=== PATIENT | male | born 1995 | race African-American/Black ===

== ENCOUNTER 2018-06-06 03:51 | Emergency (ER) | payer BC ==
--- NOTE | 2018-06-06 04:04 | ER Report ---
History and Physical Time Seen By MD: 04:04 HPI/ROS CHIEF COMPLAINT: abdominal pain HISTORY OF PRESENT ILLNESS: This is a 23 year old male. He is having lower abdominal pain. Across the lower abdomen, seems a little worse to the left side. Nothing makes it worse or better. Onset a few hours ago. Loose stools tonight. No fevers. No sic contacts. Does not think he had any bad food or water exposure, but did eat out last night. No chest pain. No shortness of breath or cough. Normal urination and no dysuria. Allergies: Coded Allergies: cefpodoxime (Verified Allergy, Intermediate, hives, 06/06/18) Home Meds Active Scripts Ondansetron (ONDANSETRON ODT) 4 Mg Tab.rapdis, 4 MG PO Q6H PRN for NAUSEA/VOMITING, #20 TAB 0 Refills Prov:DAPHNIE PATEL MD 06/06/18 Reviewed Nurses Notes: Yes Constitutional Vital Sign - Last 24 Hours 06/06/18 06/06/18 06/06/18 06/06/18 03:55 04:04 04:06 04:21 Temp 97.5 Pulse 67 72 64 Resp 14 B/P (MAP) 114/85 (95) Pulse Ox 95 96 O2 Delivery Room Air 06/06/18 06/06/18 06/06/18 06/06/18 04:36 04:51 05:17 05:21 Pulse 54 68 72 B/P (MAP) 117/68 (84) Pulse Ox 94 95 96 06/06/18 06/06/18 06/06/18 06/06/18 05:30 05:45 06:00 06:15 Pulse 70 70 76 64 Pulse Ox 95 95 95 06/06/18 06/06/18 06:30 06:45 Pulse 74 75 Pulse Ox 96 Intake and Output 06/05/18 06/05/18 06/06/18 15:00 23:00 07:00 Intake Total 1000 ml Balance 1000 ml Physical Exam General Appearance: The patient is alert. No acute distress. Eyes: Pupils are equal, round. No pallor, injection or icterus. ENT: Mucous membranes are moist. Neck: Supple and non tender. Respiratory: Lungs are clear to auscultation. Cardiovascular: Regular rate and rhythm. No murmurs, gallops or rubs. Normal capillary refill. No edema. Gastrointestinal: Abdomen is soft, discomfort with palpation across lower abdomen. Nondistended. No masses or organomegaly. Hyperactive bowel sounds. No costovertebral angle tenderness with percussion. Neurological: Alert and oriented x3. Skin: Warm and dry. Musculoskeletal: No pain in the back/spine with palpation. DIFFERENTIAL DIAGNOSIS: After history and physical exam, differential diagnosis was considered for abdominal pain including but not limited to gastroenteritis, colitis, food poisoning and urinary tract infection. Medical Decision Making Data Points Result Diagram: 06/06/1840906/06/18409 Laboratory Hematology Test 06/06/18 04:05 06/06/18 04:10 06/06/18 05:30 Urine Color Yellow Urine Clarity Slightly-cloudy Urine pH 5.0 pH (4.8-9.5) Urine Specific [place] 1.026 Urine Protein Negative mg/dL (NEGATIVE) Urine Glucose (UA) Negative mg/dL (NEGATIVE) Urine Ketones Trace mg/dL (NEGATIVE) Urine Blood Negative (NEGATIVE) Urine Nitrite Negative (NEGATIVE) Urine Bilirubin Negative (NEGATIVE) Urine Urobilinogen 2.0 mg/dL (0.2-1.9) Urine Leukocyte Esterase Negative (NEGATIVE) Urine RBC 3 /HPF (0-2/HPF) Urine WBC 3 /HPF (0-5/HPF) Urine Squamous Epithelial Cells Few /LPF (</=FEW) Urine Calcium Oxalate Crystals Moderate /HPF (NONE) Urine Bacteria Negative /HPF (NONE-FEW) Urine Mucus Few /HPF (NONE-FEW) Red Blood Count 5.94 M/uL (4.00-5.60) Mean Corpuscular Volume 83.3 fL (80.0-96.0) Mean Corpuscular Hemoglobin 28.1 pg (26.0-33.0) Mean Corpuscular Hemoglobin Concent 33.7 g/dL (32.0-36.0) Red Cell Distribution Width 14.3 % (11.5-14.5) Mean Platelet Volume 9.1 fL (7.2-11.1) Neutrophils (%) (Auto) % (39.4-72.5) Lymphocytes (%) (Auto) % (17.6-49.6) Monocytes (%) (Auto) % (4.1-12.4) Eosinophils (%) (Auto) % (0.4-6.7) Basophils (%) (Auto) % (0.3-1.4) Nucleated RBC Relative Count (auto) /100WBC Neutrophils # (Auto) K/uL (2.0-7.4) Lymphocytes # (Auto) K/uL (1.3-3.6) Monocytes # (Auto) K/uL (0.3-1.0) Eosinophils # (Auto) K/uL (0.0-0.5) Basophils # (Auto) K/uL (0.0-0.1) Nucleated RBC Absolute Count (auto) K/uL Neutrophils % (Manual) 58 % (39.4-72.5) Band Neutrophils % 1 % Lymphocytes % (Manual) 17 % (17.6-49.6) Atypical Lymphocytes % 19 % Monocytes % (Manual) 3 % (4.1-12.4) Eosinophils % (Manual) 1 % (0.4-6.7) Basophils % (Manual) 1 % (0.3-1.4) Peripheral Blood Smear Yes Y/N Sodium Level 138 mmol/L (137-145) Potassium Level 3.5 mmol/L (3.5-5.0) Chloride Level 104 mmol/L (98-107) Carbon Dioxide Level 27 mmol/L (22-30) Blood Urea Nitrogen 13 mg/dl (9-21) Creatinine 0.90 mg/dl (0.66-1.25) Glomerular Filtration Rate Calc > 60.0 Random Glucose 139 mg/dl (75-110) Calcium Level 8.9 mg/dl (8.4-10.2) Total Bilirubin 1.5 mg/dl (0.2-1.3) Aspartate Amino Transf (AST/SGOT) 26 U/L (0-35) Alanine Aminotransferase (ALT/SGPT) 25 U/L (0-56) Alkaline Phosphatase 54 U/L (0-126) Total Protein 7.0 g/dl (6.3-8.2) Albumin 4.0 g/dl (3.5-5.0) Amylase Level 94 U/L (0-110) Lipase 123 U/L (23-300) Stool Occult Blood (IFOB) Positive (NEGATIVE) Stool Leukocytes, Qualitative Negative Clostridium Difficile Toxin A & B Negative Clostridium difficile Antigen Negative Chemistry Test 06/06/18 04:05 06/06/18 04:10 06/06/18 05:30 Urine Color Yellow Urine Clarity Slightly-cloudy Urine pH 5.0 pH (4.8-9.5) Urine Specific [place] 1.026 Urine Protein Negative mg/dL (NEGATIVE) Urine Glucose (UA) Negative mg/dL (NEGATIVE) Urine Ketones Trace mg/dL (NEGATIVE) Urine Blood Negative (NEGATIVE) Urine Nitrite Negative (NEGATIVE) Urine Bilirubin Negative (NEGATIVE) Urine Urobilinogen 2.0 mg/dL (0.2-1.9) Urine Leukocyte Esterase Negative (NEGATIVE) Urine RBC 3 /HPF (0-2/HPF) Urine WBC 3 /HPF (0-5/HPF) Urine Squamous Epithelial Cells Few /LPF (</=FEW) Urine Calcium Oxalate Crystals Moderate /HPF (NONE) Urine Bacteria Negative /HPF (NONE-FEW) Urine Mucus Few /HPF (NONE-FEW) White Blood Count 10.4 k/uL (4.5-11.0) Red Blood Count 5.94 M/uL (4.00-5.60) Hemoglobin 16.7 g/dL (14.0-18.0) Hematocrit 49.5 % (42.0-52.0) Mean Corpuscular Volume 83.3 fL (80.0-96.0) Mean Corpuscular Hemoglobin 28.1 pg (26.0-33.0) Mean Corpuscular Hemoglobin Concent 33.7 g/dL (32.0-36.0) Red Cell Distribution Width 14.3 % (11.5-14.5) Platelet Count 236 K/uL (150-450) Mean Platelet Volume 9.1 fL (7.2-11.1) Neutrophils (%) (Auto) % (39.4-72.5) Lymphocytes (%) (Auto) % (17.6-49.6) Monocytes (%) (Auto) % (4.1-12.4) Eosinophils (%) (Auto) % (0.4-6.7) Basophils (%) (Auto) % (0.3-1.4) Nucleated RBC Relative Count (auto) /100WBC Neutrophils # (Auto) K/uL (2.0-7.4) Lymphocytes # (Auto) K/uL (1.3-3.6) Monocytes # (Auto) K/uL (0.3-1.0) Eosinophils # (Auto) K/uL (0.0-0.5) Basophils # (Auto) K/uL (0.0-0.1) Nucleated RBC Absolute Count (auto) K/uL Neutrophils % (Manual) 58 % (39.4-72.5) Band Neutrophils % 1 % Lymphocytes % (Manual) 17 % (17.6-49.6) Atypical Lymphocytes % 19 % Monocytes % (Manual) 3 % (4.1-12.4) Eosinophils % (Manual) 1 % (0.4-6.7) Basophils % (Manual) 1 % (0.3-1.4) Peripheral Blood Smear Yes Y/N Glomerular Filtration Rate Calc > 60.0 Calcium Level 8.9 mg/dl (8.4-10.2) Total Bilirubin 1.5 mg/dl (0.2-1.3) Aspartate Amino Transf (AST/SGOT) 26 U/L (0-35) Alanine Aminotransferase (ALT/SGPT) 25 U/L (0-56) Alkaline Phosphatase 54 U/L (0-126) Total Protein 7.0 g/dl (6.3-8.2) Albumin 4.0 g/dl (3.5-5.0) Amylase Level 94 U/L (0-110) Lipase 123 U/L (23-300) Stool Occult Blood (IFOB) Positive (NEGATIVE) Stool Leukocytes, Qualitative Negative Clostridium Difficile Toxin A & B Negative Clostridium difficile Antigen Negative Urinalysis Test 06/06/18 04:05 Urine Color Yellow Urine Clarity Slightly-cloudy Urine pH 5.0 pH (4.8-9.5) Urine Specific [place] 1.026 Urine Protein Negative mg/dL (NEGATIVE) Urine Glucose (UA) Negative mg/dL (NEGATIVE) Urine Ketones Trace mg/dL (NEGATIVE) Urine Blood Negative (NEGATIVE) Urine Nitrite Negative (NEGATIVE) Urine Bilirubin Negative (NEGATIVE) Urine Urobilinogen 2.0 mg/dL (0.2-1.9) Urine Leukocyte Esterase Negative (NEGATIVE) Urine RBC 3 /HPF (0-2/HPF) Urine WBC 3 /HPF (0-5/HPF) Urine Squamous Epithelial Cells Few /LPF (</=FEW) Urine Calcium Oxalate Crystals Moderate /HPF (NONE) Urine Bacteria Negative /HPF (NONE-FEW) Urine Mucus Few /HPF (NONE-FEW) EKG/Imaging Imaging ABDOMEN/PELVIS WITH CONTRAST HISTORY: Generalized abdominal pain. Diarrhea for one day. COMPARISON: None. TECHNIQUE: Axial images were obtained from the lung bases through the symphysis pubis with intravenous contrast. Sagittal and coronal reformats were performed. One of the following dose optimization techniques was utilized in the performance of this exam: Automated exposure control; adjustment of the mA and/or kV according to the patient's size; or use of an iterative reconstruction technique. Specific details can be referenced in the facility's radiology CT exam operational policy. CONTRAST: 75 mL IV [id number]. FINDINGS: Lower chest: Normal. Liver: Normal. Gallbladder/biliary: Gallbladder is contracted. No intrahepatic or extrahepatic ductal dilation. Pancreas: Normal. Spleen: Normal. Adrenals: Normal. Kidneys/ureters/bladder: Normal. GI/mesentery/peritoneal cavity: There is no bowel obstruction. There is no wall thickening or pericolonic stranding. The appendix is normal. No free air or free fluid. Vessels: No aneurysm or significant atherosclerotic disease. No dissection. Nodes: Normal. Pelvis: Normal. There are phleboliths. Bones/vertebra/soft tissues: There are Schmorl nodes. No listhesis. IMPRESSION: 1. No findings in the abdomen or pelvis to account for the patient's symptoms. Report Dictated By: Lissy Silva at 06/06/2018 5:27 AM ED Course/Re-evaluation Clinical Indication for ER IV: Hydration, IV Access ED Course Feels better after the IV fluids. Positive blood in the stool but otherwise negative. Suspect this may benefit poisoning episode. He will watch things and return as needed. CT scan is negative. Decision to Disposition Date: Jun 06, 2018 Decision to Disposition Time: 06:45 Depart Departure Latest Vital Signs Vital Signs Date Time Temp Pulse Resp B/P (MAP) Pulse Ox O2 Delivery O2 Flow Rate FiO2 06/06/18 06:45 75 06/06/18 06:30 96 06/06/18 05:17 117/68 (84) 06/06/18 03:55 97.5 14 Room Air Impression: Primary Impression: Food poisoning Condition: Improved Disposition: HOME OR SELF-CARE New Scripts Ondansetron (ONDANSETRON ODT) 4 Mg Tab.rapdis 4 MG PO Q6H PRN for NAUSEA/VOMITING, #20 TAB 0 Refills Prov: DAPHNIE PATEL MD 06/06/18 Patient Instructions: Food Poisoning (ED) Additional Instructions: Rest and increase fluid intake. When feeling better, you can begin a bland diet and advance slowly to a normal diet. You can use Zofran 4mg, one every 6 hours as needed for nausea. Return or see primary care if not improving. Tylenol or Ibuprofen as needed for pain. Problem Qualifiers Primary Impression: Food poisoning Encounter type: initial encounter Injury intent: accidental or unintentional Qualified Codes: T62.91XA - Toxic effect of unspecified noxious substance eaten as food, accidental (unintentional), initial encounter DAPHNIE PATEL MD Jun 06, 2018 04:04
[2018-06-06] MEDS ORDERED: NS(*) 0.9% 1000 ML BAG 1,000 ML IV ONE (04:32)
[2018-06-06 04:41] LABS: PLATELET COUNT, AUTOMATED 236 K/uL (150-450)
[2018-06-06] MEDS ORDERED: IOPAMIDOL 76% 75 ML INFUS BTL 75 ML ONE (04:46)
[2018-06-06 05:17] VITALS: BP 117/68
--- NOTE | 2018-06-06 05:41 | RADIOLOGY IMAGING REPORT ---
FACILITY: [facility] PATIENT NAME: Hernandez Hutson : 1995 MR: [id number] V: [id number] EXAM DATE: ORDERING PHYSICIAN: DAPHNIE PATEL TECHNOLOGIST: Location: [facility] - [place] Patient: Hernandez Hutson : 1995 Visit/Account:[id number] Date of Sevice: 06/06/2018 ABDOMEN/PELVIS WITH CONTRAST HISTORY: Generalized abdominal pain. Diarrhea for one day. COMPARISON: None. TECHNIQUE: Axial images were obtained from the lung bases through the symphysis pubis with intravenou s contrast. Sagittal and coronal reformats were performed. One of the following dose optimization techniques was utilized in the performance of this exam: Autom ated exposure control; adjustment of the mA and/or kV according to the patient's size; or use of an i terative reconstruction technique. Specific details can be referenced in the facility's radiology CT exam operational policy. CONTRAST: 75 mL IV Isovue-370. FINDINGS: Lower chest: Normal. Liver: Normal. Gallbladder/biliary: Gallbladder is contracted. No intrahepatic or extrahepatic ductal dilation. Pancreas: Normal. Spleen: Normal. Adrenals: Normal. Kidneys/ureters/bladder: Normal. GI/mesentery/peritoneal cavity: There is no bowel obstruction. There is no wall thickening or pericol onic stranding. The appendix is normal. No free air or free fluid. Vessels: No aneurysm or significant atherosclerotic disease. No dissection. Nodes: Normal. Pelvis: Normal. There are phleboliths. Bones/vertebra/soft tissues: There are Schmorl nodes. No listhesis. IMPRESSION: 1. No findings in the abdomen or pelvis to account for the patient's symptoms. Report Dictated By: Lissy Silva at 06/06/2018 5:27 AM Report E-Signed By: Lissy Silva at 06/06/2018 5:37 AM WSN:[id number]
[2018-06-06] MEDS ORDERED: ONDA4TAB9 PO (06:47)
== END 2018-06-06 06:58 | disposition home or self-care (01) ==
LOC: ER 04:08
DX: T62.91XA Toxic effect of unspecified noxious substance eaten as food, accidental (unintentional), initial encounter (principal)
CPT/HCPCS: 74177; 81001; 82150; 82274; 83630; 83690; 85025; 87045; 87324; 87449; 96360; 99284; J7030; Q9967; 82040; 82247; 82310; 82374; 82435; 82565; 82947; 84075; 84132; 84155; 84295; 84450; 84460; 84520